=== PATIENT | female | born 1955 | race Caucasian/White ===

== ENCOUNTER 2020-12-18 01:14 | Emergency (ER) | payer MEDICARE, SELFPAY ==
--- NOTE | ~2020-12-18 | CT_ITS ---
EXAMINATION: CT brain wo con INDICATION: Head injury COMPARISON: None TECHNIQUE: Standard unenhanced head CT. The dose-length product (DLP) was 605.33 mGy-cm. The mA was a djusted according to patient size. Iterative reconstruction technique was employed. FINDINGS: There is no intracranial hemorrhage, acute infarction, or abnormal mass lesion. The ventric les are normal. There is no abnormal mass effect or midline shift. The lopes-white matter differentiat ion is normal. The basal cisterns are patent. The orbits are normal. There is mild mucosal thickening of the paranasal sinuses. IMPRESSION: 1. No acute intracranial abnormality. Reviewed, dictated and finalized at location A.
--- NOTE | ~2020-12-18 | CT_ITS ---
EXAMINATION: CT facial & cervical spine wo DATE: 12/18/2020 02:27 INDICATION: Facial pain, head injury, initial encounter TECHNIQUE: Computed tomography (CT) of the maxillofacial region and cervical spine was performed with out intravenous contrast. The dose-length product (DLP) was 308.97 mGy-cm. Automated exposure control and iterative reconstruction technique were employed. COMPARISON: None FINDINGS: MAXILLOFACIAL CT: There are acute, comminuted bilateral nasal bone fractures. There is a fracture of the anterior proce ss of the maxilla. The upper portion of the nasal septum fracture at its anterior aspect. No addition al facial fracture is identified. The globes and orbits are normal. There is nasal soft tissue swelli ng. CERVICAL SPINE CT: There is no fracture. Bone alignment is normal. There is severe loss of intervertebral disc space hei ght at C5-6 and C6-7. The odontoid is intact. Small degenerative osteophytes project from the anterio r endplates of multiple vertebral bodies. There is moderate multilevel facet and uncovertebral joint osteoarthritis. The prevertebral soft tissues are normal. IMPRESSION: 1. Acute comminuted bilateral nasal bone fractures, nondisplaced anterior process of the maxilla frac ture, anterior seventh rib fracture. 2. Moderate cervical spondylosis without acute findings. Reviewed, dictated and finalized at location A. IMPRESSION: 1. Acute comminuted bilateral nasal bone fractures, nondisplaced anterior proce ss of the maxilla fracture, anterior seventh rib fracture. 2. Moderate cervical spondylosis without acute findings.
[2020-12-18 01:17] VITALS: BP 164/93; PULSE 83; RESP 16; TEMP 36.5; O2SAT 98
[2020-12-18 02:34] VITALS: BP 140/84; PULSE 79; RESP 18; O2SAT 98
--- NOTE | 2020-12-18 03:06 | ED.GENADULT ---
HPI - General Adult General Chief complaint: Fall Stated complaint: glf-face first caught with arms face still hit Time Seen by Provider: 12/18/20 01:19 History of Present Illness HPI narrative: Patient is a 5-year-old female presents the emergency department with chief complaint of head and facial injury. The patient reports that she was walking to the bathroom in her walker and reported that she somehow another got tripped by her walker fell struck her face. The patient reports that she is on blood thinners reports that she had bleeding from her nose reports that her neck felt a little uncomfortable after the fall. Patient denies focal neurological deficit denies being confused. Patient denies any other injuries. Related Data Home Medications Medication Instructions Recorded Confirmed clopidogrel [Plavix] 12/18/20 Allergies Allergy/AdvReac Type Severity Reaction Status Date / Time No Known Allergies Allergy Verified 12/18/20 01:33 Review of Systems Review of Systems: A 10 system review of systems was completed on the patient and is negative except for what is stated in the HPI. Nursing and ancillary documentation was reviewed. Exam Narrative: GENERAL: Well-appearing, well-nourished, and in no acute distress. HEAD: Normocephalic, atraumatic. EYES: PERRLA and EOMI. ENT: Nares clear, no rhinorrhea there is blood present in bilateral nostrils there is no septal hematoma. Mucous membranes moist. NECK: Supple. CHEST: Clear to auscultation. No respiratory distress. HEART: Regular rate and rhythm. No murmur heard. Normal peripheral pulses. ABDOMEN: Soft, nontender, nondistended, normal active bowel sounds. EXTREMITIES: Normal range of motion. No edema. SKIN: Warm, dry, no rash. NEURO: No focal deficits. Alert and oriented x3. PSYCH: Normal mood and affect. Course Vital Signs Vital signs: Vital Signs Temperature 36.5 C 12/18/20 01:17 Pulse Rate 83 12/18/20 01:17 Respiratory Rate 16 12/18/20 01:17 Blood Pressure 164/93 H 12/18/20 01:17 Pulse Oximetry 98 12/18/20 01:17 Temperature 36.5 C 12/18/20 01:17 Pulse Rate 78 12/18/20 03:57 Respiratory Rate 17 12/18/20 03:57 Blood Pressure 148/89 H 12/18/20 03:57 Pulse Oximetry 98 09/18/21 03:57 Medical Decision Making Vital Signs Vital Signs: Vital Signs Temperature 36.5 C 12/18/20 01:17 Pulse Rate 83 12/18/20 01:17 Respiratory Rate 16 12/18/20 01:17 Blood Pressure 164/93 H 12/18/20 01:17 Pulse Oximetry 98 12/18/20 01:17 Temperature 36.5 C 12/18/20 01:17 Pulse Rate 78 12/18/20 03:57 Respiratory Rate 17 12/18/20 03:57 Blood Pressure 148/89 H 12/18/20 03:57 Pulse Oximetry 98 12/18/20 03:57 Discharge Plan Discharge Clinical Impression: Head injury Qualifiers: Encounter type: initial encounter Qualified Code(s): S09.90XA - Unspecified injury of head, initial encounter Fracture of nasal bone Qualifiers: Encounter type: initial encounter Fracture type: open Qualified Code(s): S02.2XXB - Fracture of nasal bones, initial encounter for open fracture Patient Disposition: Home, Self-Care Condition: Stable Instructions: Antibiotic Form, Nasal Fracture (ED), Head Injury (ED) Additional Instructions: Please follow-up with your primary care physician it is recommended that you have your primary doctor refer you to a search engine optimization analyst for following up of the nasal bone fracture. Prescriptions: New cephalexin 500 mg capsule 500 mg PO Q6H 7 Days Qty: 28 RF: 0 No Action clopidogrel [Plavix] 75 mg Tablet RF: 0 Follow-up/Referrals: UNKNOWN,DOCTOR [Primary Care Provider] -
[2020-12-18 03:57] VITALS: BP 148/89; PULSE 78; RESP 17; O2SAT 98
[2020-12-18 04:50] VITALS: BP 122/74; PULSE 77; RESP 18; O2SAT 100
== END 2020-12-18 05:00 | disposition home or self-care (01) ==
PROVIDERS: Emergency Provider Emergency Medicine
DX: S02.2XXB Fracture of nasal bones, initial encounter for open fracture (principal); S02.401A Maxillary fracture, unspecified side, initial encounter for closed fracture; S22.32XA Fracture of one rib, left side, initial encounter for closed fracture; Z79.02 Long term (current) use of antithrombotics/antiplatelets; M47.812 Spondylosis without myelopathy or radiculopathy, cervical region; W18.09XA Striking against other object with subsequent fall, initial encounter
CPT/HCPCS: 70450; 70486; 72125; 99284

== ENCOUNTER 2021-06-25 14:02 | Emergency (ER) | payer MEDICARE, SELFPAY ==
[2021-06-25] VITALS (9 sets, daily range): BP systolic 114–146; BP diastolic 75–101; PULSE 71–79; RESP 14–22; TEMP 36.8; O2SAT 96–100
--- NOTE | 2021-06-25 14:10 | ECG_ITS ---
Measurements Intervals [place] Rate: 77 P: 33 MO: 178 QRS: 12 QRSD: 94 T: 11 QT: 385 QTc: 437 Interpretive Statements POOR DATA QUALITY SINUS RHYTHM WITHIN NORMAL LIMITS NO PREVIOUS ECG AVAILABLE FOR COMPARISON Electronically Signed On 06-26-2021 8:30:45 CDT by Jamil Hernandez M.D.
--- NOTE | 2021-06-25 14:16 | ED.GENADULT ---
HPI - General Adult General Chief complaint: Unspecified Stated complaint: hypertension Time Seen by Provider: 06/25/21 14:07 History of Present Illness HPI narrative: Patient is a 66-year-old female sent here from [facility] due to elevated blood pressure of 160/100 according to EMS. Patient has no complaints at this time. Patient denies any headache, dizziness, speech or visual disturbance, focal weakness or numbness, chest pain, shortness of breath, abdominal pain, nausea, vomiting, or diaphoresis. Related Data Home Medications Medication Instructions Recorded Confirmed clopidogrel [Plavix] 12/18/20 Allergies Allergy/AdvReac Type Severity Reaction Status Date / Time No Known Allergies Allergy Verified 12/18/20 01:33 Review of Systems Review of Systems: All systems reviewed & are unremarkable except as noted in HPI and below Constitutional: Constitutional: Denies body ache(s), Denies chills, Denies excessive sweating, Denies fatigue, Denies fever(s), Denies headache(s), Denies lethargy, Denies malaise, Denies weakness and Denies weight loss Eyes: Eyes: Denies blurry vision, Denies change in vision and Denies loss of vision ENT: Denies dizziness, Denies ear discharge, Denies headache(s), Denies lip swelling, Denies epistaxis, Denies nasal congestion, Denies neck pain, Denies throat swelling and Denies tongue swelling Cardiovascular: Cardiovascular: Denies chest pain, Denies chest pain at rest, Denies chest pain with activity, Denies diaphoresis, Denies rapid heart rate, Denies edema, Denies irregular heart rhythm, Denies lightheadedness, Denies palpitations, Denies dyspnea and Denies dyspnea on exertion Respiratory: Respiratory: Denies chest congestion, Denies cough, Denies hemoptysis, Denies dyspnea and Denies dyspnea on exertion Gastrointestinal: Gastrointestinal: Denies abdominal pain, Denies melena, Denies hematochezia, Denies diarrhea, Denies nausea, Denies vomiting and Denies hematemesis Musculoskeletal: Musculoskeletal: Denies abnormal gait, Denies deformity, Denies joint swelling, Denies limited range of motion, Denies neck pain and Denies numbness Neurologic: Denies Abnormal speech present, Denies abnormal gait, Denies confusion, Denies dizziness, Denies headache(s), Denies focal weakness, Denies loss of vision, Denies numbness, Denies Other visual disturbances, Denies Sensory deficit (Neuro) and Denies weakness Psychiatric: Psychiatric: Denies confusion, Denies depression, Denies auditory hallucinations, Denies homicidal ideation and Denies suicidal ideation Endocrine: Endocrine: Denies cold intolerance, Denies excessive sweating, Denies fatigue, Denies heat intolerance and Denies palpitations Hematologic/Lymphatic: Hematologic/Lymphatic: Denies easy bleeding and Denies easy bruising Allergic/Immunologic: Allergic/Immunologic: Denies lip swelling, Denies throat swelling and Denies tongue swelling PMFSH Comments Past medical history: Hypertension Family history: Hypertension Social history: Non-smoker no EtOH use, lives at [facility] Exam Const: General: cooperative, healthy appearing, comfortable, no acute distress, well developed, alert and awake; No confusion Orientation/consciousness: oriented to person, oriented to place, oriented to time, patient oriented x3 and No confusion Limitations: no limitations HENMT: Head: normal to inspection, normocephalic and atraumatic Ears: hearing grossly normal bilaterally, TM normal on the right and TM normal on the left General nose exam: Normal external nose present, Normal nares present and No nasal discharge present Face and sinus: normal facial exam Mouth: Yes Normal oral and palatal mucosa present, Yes lip normal, Yes tongue normal and Yes oropharynx normal Throat: posterior oropharynx normal, tonsils normal and uvula midline Eyes: General: appearance normal, both eyes and all related structures Pupils: E
[2021-06-25 14:53] LABS: Basophils Percent Auto 0.3 % (0.2-1.2); Eosinophils Percent Auto 0.6 % (0-4.4); Hematocrit 41.8 % (37.0-47.0); Hemoglobin 13.1 g/dL (12.0-15.0); Lymphocytes Absolute Auto 1.27 K/mm3 (0.9-3.2); Mean Corpuscular HGB Conc 31.3 g/dl (32-36); Mean Corpuscular Hemoglobin 27.6 pg (26-34); Mean Corpuscular Volume 88.2 fl (80-100); Monocytes Absolute Auto 0.4 K/mm3 (0.1-0.6); Neutrophils Absolute Auto 1.6 K/mm3 (1.3-6.7); Neutrophils Percent Auto 48.1 % (45.5-73.1); Platelet Count Result 239 k/mm3 (150-375); Red Blood Count 4.74 M/mm3 (4.2-5.4); Red Cell Distribution Width 14.2 % (11.5-14.5); White Blood Count 3.3 K/mm3 (4.5-10.0)
[2021-06-25 15:02] LABS: Anion Gap 7 mmol/L (8-16); Blood Urea Nitrogen 15 mg/dL (7-17); Calcium 8.5 mg/dL (8.4-10.2); Carbon Dioxide 26 mmol/L (22-30); Chloride 104 mmol/L (98-107); Estimated CRCL calculation 78 ml/min; Estimated Glomerular Filt Rate > 60; Glucose 104 mg/dL (65-110); Potassium 3.5 mmol/L (3.4-5.0); Sodium 137 mmol/L (137-145)
== END 2021-06-25 16:21 ==
PROVIDERS: Emergency Provider Emergency Medicine; PCP Family Medicine
DX: I10 Essential (primary) hypertension (principal); Z79.02 Long term (current) use of antithrombotics/antiplatelets
CPT/HCPCS: 36415; 80048; 85025; 93005; 99283

== ENCOUNTER 2022-06-27 08:01 | Emergency (ER) | payer MEDICARE, SELFPAY ==
[2022-06-27] VITALS (8 sets, daily range): BP systolic 129–140; BP diastolic 75–95; PULSE 66–78; RESP 13–22; TEMP 36.6; O2SAT 94–95
--- NOTE | ~2022-06-27 | CT_ITS ---
EXAMINATION: CT cervical spine wo con DATE: 06/27/2022 08:28 INDICATION: Head injury. TECHNIQUE: Computed tomography (CT) of the cervical spine was performed without intravenous contrast. Automated exposure control and iterative reconstruction technique were employed. The dose-length pro duct was 252.17 mGy-cm. COMPARISON: CT cervical spine 12/18/2020 FINDINGS: Bone alignment is normal. Vertebral body heights are normal. There is severely decreased di sc height at C5-C6 and C6-C7. The following disc levels are specifically discussed: C2-C3: There is no uncovertebral joint osteoarthritis. There is moderate right facet joint osteoarthr itis. There is no neural foraminal stenosis. There is no central canal stenosis. C3-C4: There is no uncovertebral joint osteoarthritis. There is mild right and moderate left facet maciej int osteoarthritis. There is mild left neural foraminal stenosis. There is no central canal stenosis. C4-C5: There is no uncovertebral joint osteoarthritis. There is moderate bilateral facet joint osteoa rthritis. There is no neural foraminal stenosis. There is no central canal stenosis. C5-C6: There is severe bilateral uncovertebral joint osteoarthritis. There is mild bilateral facet maciej int osteoarthritis. There is mild bilateral neural foraminal stenosis. There is mild central canal st enosis. C6-C7: There is moderate bilateral uncovertebral joint osteoarthritis. There is moderate right and mi ld left facet joint osteoarthritis. There is mild bilateral neural foraminal stenosis. There is mild central canal stenosis. C7-T1: There is no uncovertebral joint osteoarthritis. There is mild bilateral facet joint osteoarthr itis. There is no neural foraminal stenosis. There is no central canal stenosis. IMPRESSION: 1. No fracture. 2. Severe cervical spondylosis. Reviewed, dictated and finalized at location A.
--- NOTE | ~2022-06-27 | CT_ITS ---
EXAMINATION: CT brain wo con DATE: 06/27/2022 08:28 INDICATION: Head injury. TECHNIQUE: Computed tomography (CT) of the head was performed without intravenous contrast. The mA wa s adjusted according to patient size. Iterative reconstruction technique was employed. The dose-lengt h product was 681.00 mGy-cm. COMPARISON: Head CT 12/18/2020 FINDINGS: There is no intracranial hemorrhage, acute infarction, or abnormal intracranial mass lesion . There are scattered areas of low attenuation in the cerebral white matter, which is within normal l imits for the patient's age. The ventricles are normal in size. The orbits are normal. There is muco paul thickening in the paranasal sinuses. There are old fracture deformities of the nasal bones and ri ght nasal process of maxilla. There is a small left mastoid effusion. There is cerumen in the externa l auditory canals. IMPRESSION: 1. Normal aging brain. Reviewed, dictated and finalized at location A. IMPRESSION: 1. Normal aging brain.
--- NOTE | 2022-06-27 09:27 | ED.FALL ---
HPI - Fall General Chief Complaint: Fall Stated Complaint: fall Time Seen by Provider: 06/27/22 09:02 History of Present Illness HPI Narrative: 67-year-old female who lives at a local long-term care facility, presented to the ER this morning for evaluation after having a fall. A nurse was assisting her out of bed and they lost balance and she fell hitting her right ear. She has a small laceration to the upper outer right ear. She denies having any headache or neck pain. She denies having any pain to her upper or lower extremities or chest or abdomen or back. No numbness or tingling. Related Data Home Medications Medication Instructions Recorded Confirmed atorvastatin 40 mg tablet mg 06/27/22 cyclosporine 0.05 % eye drops in a drp 06/27/22 dropperette ergocalciferol (vitamin D2) 50,000 1 unit PO WEEKLY 06/27/22 unit tablet ropinirole 0.5 mg tablet mg 06/27/22 Allergies Allergy/AdvReac Type Severity Reaction Status Date / Time No Known Allergies Allergy Verified 06/27/22 08:47 Review of Systems Review of Systems: CONSTITUTIONAL: Denies fever, chills, or sweats. EYES: Denies visual changes, redness, or discharge. ENT: Denies rhinorrhea, congestion, sore throat, or otalgia. CARDIOVASCULAR: Denies chest pain, palpitations, or edema. RESPIRATORY: Denies cough or dyspnea. GASTROINTESTINAL: Denies abdominal pain, nausea, vomiting, or diarrhea. GENITOURINARY: Denies dysuria or hematuria. SKIN: small laceration right ear MUSCULOSKELETAL: Denies back pain, joint pain, or myalgia. NEUROLOGIC: Denies headache, numbness, dizziness, or weakness. PSYCHIATRIC: Denies anxiety or depression. [facility] Family History Family History Other CAD (coronary artery disease) HLD (hyperlipidemia) Hypertension GIRISH (obstructive sleep apnea) RLS (restless legs syndrome) Social History Social History Years smoked: 20 Smoking status: Former smoker Tobacco type: cigarettes Additional smoking assessment comments: Quit April Exam Narrative: GENERAL: Well-appearing, well-nourished, and in no acute distress. HEAD: Normocephalic, atraumatic. EYES: PERRLA and EOMI. CHEST: Clear to auscultation. No respiratory distress. No wheezes rales or rhonchi HEART: Regular rate and rhythm. No murmur heard. Normal peripheral pulses. ABDOMEN: Soft, nontender, nondistended, normal active bowel sounds. EXTREMITIES: Normal range of motion. No edema. SKIN: superficial laceration to the right outer ear about 0.5cm NEURO Alert and oriented x3. PSYCH: Normal mood and affect. Course Vital Signs Vital signs: Vital Signs Temperature 36.6 C 06/27/22 07:56 Pulse Rate 78 06/27/22 07:56 Respiratory Rate 16 06/27/22 07:56 Blood Pressure 140/95 H 06/27/22 07:56 Pulse Oximetry 94 06/27/22 07:56 Oxygen Delivery Room Air 06/27/22 07:56 Temperature 36.6 C 06/27/22 07:56 Pulse Rate 68 06/27/22 09:01 Respiratory Rate 16 06/27/22 09:01 Blood Pressure 137/90 06/27/22 09:01 Pulse Oximetry 95 06/27/22 09:01 Oxygen Delivery Room Air 06/27/22 07:56 Procedures Laceration Laceration 1: Date: 06/27/22 Time: 10:11 Site: other (right ear) Size (cm): 0.5 Description: irregular and clean Depth: simple, single layer Pre-repair: wound explored and other (cleansed with normal saline) ====== Skin Level ====== Skin layer closed with: dermabond ====== Subcutaneous Layer ====== ====== Muscle Layer ====== ====== Tendon Layer ====== MDM - Fall MDM Narrative Medical decision making narrative: Negative head and neck CT, will discharge back to LTC. Differential Diagnosis Differential diagnosis: Likely other (SDH, contusion, laceration, cervical strain, cervical spine fracture) Imaging Data Radiologist's impressi
== END 2022-06-27 10:50 ==
PROVIDERS: Emergency Provider Nurse Practitioner Family; PCP Family Medicine
DX: S01.311A Laceration without foreign body of right ear, initial encounter (principal); W19.XXXA Unspecified fall, initial encounter; I10 Essential (primary) hypertension; I25.10 Atherosclerotic heart disease of native coronary artery without angina pectoris; E78.5 Hyperlipidemia, unspecified; G47.33 Obstructive sleep apnea (adult) (pediatric); G25.81 Restless legs syndrome; Z87.891 Personal history of nicotine dependence; Z79.02 Long term (current) use of antithrombotics/antiplatelets; Z23 Encounter for immunization
CPT/HCPCS: 12011; 70450; 72125; 90471; 99284

== ENCOUNTER 2022-09-18 20:02 | Emergency (ER) | payer MEDICARE, SELFPAY ==
--- NOTE | ~2022-09-18 | XR_ITS ---
EXAM: XR knee LT 3V DATE: 09/18/2022 20:52 HISTORY: left knee pain after fall, pt non verbal . COMPARISON: None available. FINDINGS: Decreased mineralization. No fracture or dislocation. No lytic or blastic lesion. Mild tri compartmental osteoarthritis. Quadriceps enthesopathy. Small volume joint fluid. No erosion or perios teal change. Soft tissues within normal limits. IMPRESSION: No acute osseous finding in the left knee. Reviewed, dictated and finalized at location K.
--- NOTE | ~2022-09-18 | CT_ITS ---
EXAMINATION: CT cervical spine wo con DATE: 09/18/2022 20:45 INDICATION: neck pain, trauma TECHNIQUE: Computed tomography (CT) of the cervical spine was performed without intravenous contrast. Automated exposure control and iterative reconstruction technique were employed. The dose-length pro duct was 211.95 mGy-cm. COMPARISON: 06/27/2022. FINDINGS: Vertebral Body Alignment: Intact. Craniocervical and atlantoaxial alignment: Moderate degenerative change. Alignment intact. Osseous structures/fracture: No evidence of a lytic or blastic process in the visualized spine. No e vidence of acute fracture. Cervical soft tissues: The paraspinal soft tissues planes are maintained. Degenerative changes: Degenerative changes, without severe neural foraminal or central canal narrowin g. IMPRESSION: No acute fracture or traumatic malalignment in the cervical spine. Reviewed, dictated and finalized at location K.
--- NOTE | ~2022-09-18 | CT_ITS ---
EXAMINATION: CT brain wo con DATE: 09/18/2022 20:42 INDICATION: head injury . TECHNIQUE: Computed tomography (CT) of the head was performed without intravenous contrast. The mA wa s adjusted according to patient size. Iterative reconstruction technique was employed. The dose-lengt h product was 605.33 mGy-cm. COMPARISON: 06/27/2022. FINDINGS: No acute intracranial hemorrhage or extra-axial fluid collection. No hydrocephalus, mass, or herniation. No acute ischemic infarct. Unremarkable dural venous sinus attenuation. No acute osseous abnormality. The aerated spaces are clear. Mild atrophy and chronic white matter change. Atherosclerotic intracranial calcification. Small old b ilateral basal ganglia lacunar infarcts. IMPRESSION: No acute intracranial process. Reviewed, dictated and finalized at location K.
[2022-09-18 20:02] VITALS: BP 120/84; PULSE 66; RESP 15; TEMP 36.8; O2SAT 96
--- NOTE | 2022-09-18 20:39 | ED.GENADULT ---
HPI - General Adult General Chief complaint: Fall Stated complaint: GLF STRUCK HEAD Time Seen by Provider: 09/18/22 20:07 History of Present Illness HPI narrative: 67-year-old female presented emergency department for evaluation of head neck and left knee pain. Patient reports that she fell from her wheelchair while she was sitting there. Patient states she did injure her head and knee but denies any loss of consciousness. Patient denies any other pain or injury. Related Data Home Medications Medication Instructions Recorded Confirmed atorvastatin 40 mg tablet mg 06/27/22 cyclosporine 0.05 % eye drops in a drp 06/27/22 dropperette ergocalciferol (vitamin D2) 50,000 1 unit PO WEEKLY 06/27/22 unit tablet ropinirole 0.5 mg tablet mg 06/27/22 Allergies Allergy/AdvReac Type Severity Reaction Status Date / Time Penicillins Allergy Other Verified 09/18/22 20:10 Review of Systems Review of Systems: All systems reviewed & are unremarkable except as noted in HPI and below [facility] Family History Family History Other CAD (coronary artery disease) HLD (hyperlipidemia) Hypertension GIRISH (obstructive sleep apnea) RLS (restless legs syndrome) Social History Social History Years smoked: 20 Smoking status: Former smoker Tobacco type: cigarettes Additional smoking assessment comments: Quit April Exam Narrative: APPEARANCE: Well appearing, no pain, no distress, well-nourished. HEAD: normocephalic, atraumatic. EYES: PERRLA/EOMI, conjunctivae clear. NOSE: Normal no drainage EARS:TMS clear with good light reflex. THROAT: Pharynx clear, no exudate. NECK: Supple. No adenopathy, no masses. RESPIRATORY: Airway patent, respirations nonlabored. Clear to auscultation bilaterally, no rales, rhonchi, wheezing. CARDIOVASCULAR: Regular rate and rhythm without murmurs rubs or gallops. ABDOMINAL: Soft, nontender, nondistended, normal bowel sounds MUSCULOSKELETAL: Moves all extremities. Tenderness to left knee NEURO: Alert. Cranial nerves II through XII intact. Grossly intact SKIN: Warm, dry. Normal Color Course Course Emergency Course: 67-year-old female presented the ED for evaluation for a fall from her wheelchair. Patient's head neck and knee imaging were negative. Patient reports that she has no pain at this time. Patient was updated the results of her imaging. Patient was discharged back to her care facility. Patient was well-appearing at time of discharge. All question concerns were addressed Vital Signs Vital signs: Vital Signs Temperature 98.3 F 09/18/22 20:02 Pulse Rate 66 09/18/22 20:02 Respiratory Rate 15 09/18/22 20:02 Blood Pressure 120/84 09/18/22 20:02 Pulse Oximetry 96 09/18/22 20:02 Oxygen Delivery Room Air 09/18/22 20:02 Temperature 98.3 F 09/18/22 20:02 Pulse Rate 66 09/18/22 20:02 Respiratory Rate 15 09/18/22 20:02 Blood Pressure 120/84 09/18/22 20:02 Pulse Oximetry 96 09/18/22 20:02 Oxygen Delivery Room Air 09/18/22 20:02 Medical Decision Making Differential Diagnosis Differential Diagnosis: Subdural hematoma, subarachnoid hemorrhage, cervical spine fracture, knee fracture, knee contusion Vital Signs Vital Signs: Vital Signs Temperature 98.3 F 09/18/22 20:02 Pulse Rate 66 09/18/22 20:02 Respiratory Rate 15 09/18/22 20:02 Blood Pressure 120/84 09/18/22 20:02 Pulse Oximetry 96 09/18/22 20:02 Oxygen Delivery Room Air 09/18/22 20:02 Temperature 98.3 F 09/18/22 20:02 Pulse Rate 66 09/18/22 20:02 Respiratory Rate 15 09/18/22 20:02 Blood Pressure 120/84 09/18/22 20:02 Pulse Oximetry 96 09/18/22 20:02 Oxygen Delivery Room Air 09/18/22 20:02 Imaging Data Radiologist's impression: Impressions Head CT 09/18/22 20:52 IMPRESSION: No acute intr
[2022-09-18 23:41] VITALS: BP 122/80; PULSE 73; RESP 16; O2SAT 95
== END 2022-09-18 23:46 ==
PROVIDERS: Emergency Provider Emergency Medicine; PCP Internal Medicine
DX: S09.90XA Unspecified injury of head, initial encounter (principal); S89.92XA Unspecified injury of left lower leg, initial encounter; Z87.891 Personal history of nicotine dependence; W05.0XXA Fall from non-moving wheelchair, initial encounter
CPT/HCPCS: 70450; 72125; 73562; 99284